=== PATIENT | male | born 2000 | race Caucasian/White ===

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

== ENCOUNTER 2024-09-20 01:34 | Emergency (ER) | payer BC, OTHER ==
[~2024-09-20] VITALS: Ht 180.3 cm; Wt 117.9 kg
[~2024-09-20 01:34] MED LIST changes: +IBUP800 PO; +Norco 5-325 Ta1 EACH PO
[2024-09-20] MEDS ORDERED: DOCU100 PO (02:33)
[2024-09-20 02:42] VITALS: BP 116/77
== END 2024-09-20 02:44 | disposition home or self-care (01) ==
LOC: ER 01:34
DX: K60.2 Anal fissure, unspecified (principal); K59.00 Constipation, unspecified; K21.9 Gastro-esophageal reflux disease without esophagitis; J45.909 Unspecified asthma, uncomplicated; Z68.36 Body mass index [BMI] 36.0-36.9, adult
CPT/HCPCS: 99282